=== PATIENT | female | born 1950 | race Caucasian/White ===

== ENCOUNTER → 2021-01-24 | Outpatient (CLI) | payer MEDICARE, BC ==
[~2021-01-24] MED LIST: ASPI325 PO; ASPI81CH PO; CALCIT950 PO; CENTRUM SILVER1 EAC3; CHOL10002 PO; CIPR500 PO; CYAN1000 PO; DICL25ER PO; DICL75ER PO; DOCU100 PO; ERGO400 PO; FISH1000 PO; FOLI1 PO; FOLI400 PO; GLUCOSAMINE-CH1 EA16; GLUCOSAMINE-CH1 EAC4 PO; IBUP800 PO; MAGGLU250 PO; MAGNESIUM400 MG PO; METF500 PO; MULVITMINF PO; Mag-G500 MG PO; OMEP20ER PO; OXYACE5T PO; PRED1SU OD; Tylophen500 MG PO; VITAMIN B-122000 MCG PO
[2021-01-24 14:19] LABS: Creatinine, Urine Random 74.5 mg/dL (27.00-270.00); Microalb/Creat Ratio UR, Rand 17.718 mg/g (0.000-30.000); Microalbumin, Random Urine 13.2 mg/L (0.000-20.000)
== END ==
LOC: LAB SHORT 08:55 → LAB EV 08:55
PROVIDERS: Nurse Practitioner Family
DX: E11.9 Type 2 diabetes mellitus without complications (principal)
CPT/HCPCS: 82043; 82570

== ENCOUNTER → 2021-07-17 | Outpatient (CLI) | payer MEDICARE, BC | END | disposition home or self-care (01) | LOC: LAB SHORT 08:35 → LAB 08:35 | DX: L08.9 Local infection of the skin and subcutaneous tissue, unspecified (principal) | CPT/HCPCS: 87070; 87075; 87077; 87147; 87186; 87205 ==

== ENCOUNTER 2021-07-18 09:02 | Emergency (ER) | payer MEDICARE, BC ==
[~2021-07-18] VITALS: Ht 165.1 cm; Wt 90.0 kg
[2021-07-18 10:20] LABS: BASOPHILS ABSOLUTE AUTO 0.04 K/mm3 (0.00-0.23); BASOPHILS PERCENT AUTO 0 % (0-2); EOSINOPHILS ABSOLUTE AUTO 0.11 K/mm3 (0.00-0.68); EOSINOPHILS PERCENT AUTO 1 % (0-6); Hematocrit 34.1 % (33.0-51.0); Hemoglobin 11.1 g/dL (11.5-16.0); IMMATURE GRAN ABSOLUTE AUTO 0.03 K/mm3 (0.00-0.10); IMMATURE GRAN PERCENT AUTO 0 % (0-1); LYMPHOCYTES ABSOLUTE AUTO 1.95 K/mm3 (0.84-5.20); LYMPHOCYTES PERCENT AUTO 19 % (21-46); MONOCYTES ABSOLUTE AUTO 0.95 K/mm3 (0.16-1.47); MONOCYTES PERCENT AUTO 10 % (4-13); Mean Corpuscular HGB Conc 32.6 g/dL (31.5-36.5); Mean Corpuscular Volume 98 fL (80-100); Mean Platelet Volume 10.3 fL (9.1-12.4); NEUTROPHILS ABSOLUTE AUTO 6.95 K/mm3 (1.96-9.15); NEUTROPHILS PERCENT AUTO 69 % (41-73); Platelet Count 276 K/mm3 (150-400); RDW Coefficient Variation 13.2 % (11.7-14.2); RDW Standard Deviation 47.6 fL (35.1-46.3); Red Blood Cell Count 3.47 M/mm3 (3.80-5.20); White Blood Cell Count 10.03 K/mm3 (4.00-11.30)
[2021-07-18 10:43] LABS: Alanine Aminotransfer (ALT/SGP 21 U/L (12-78); Albumin, Blood 3.3 g/dL (3.4-5.0); Albumin/Globulin Ratio 0.8 (0.8-1.8); Alk Phos 79 U/L (50-136); Anion Gap 4 mmol/L (6-16); Aspartate Aminotrans (AST/SGOT 16 U/L (12-37); Bilirubin, Total 0.3 mg/dL (0.1-1.0); Blood Urea Nitrogen 25 mg/dL (8-24); Bun/Creatinine Ratio 28.8 (12.0-20.0); CO2, Blood 27 mmol/L (21-32); Calcium, Blood 9.7 mg/dL (8.5-10.1); Chloride, Blood 108 mmol/L (98-108); Creatinine, Blood 0.87 mg/dL (0.40-1.00); Globulin, Blood 3.9 g/dL (2.2-4.0); Glomerular Filtration Rate >60 (60-); Glucose, Blood 131 mg/dL (70-99); Potassium, Blood 4.3 mmol/L (3.5-5.5); Sodium, Blood 139 mmol/L (136-145); Total Protein, Blood 7.2 g/dL (6.4-8.2)
== END 2021-07-18 11:34 | disposition home or self-care (01) ==
LOC: ER 09:02
PROVIDERS: Emergency Medicine
DX: E11.69 Type 2 diabetes mellitus with other specified complication (principal); M86.641 Other chronic osteomyelitis, right hand; L03.011 Cellulitis of right finger; Z88.8 Allergy status to other drugs, medicaments and biological substances; Z79.899 Other long term (current) drug therapy; Z79.84 Long term (current) use of oral hypoglycemic drugs; Z79.82 Long term (current) use of aspirin
CPT/HCPCS: 26010; 36415; 73120; 80053; 83605; 85025; 85651; 86141; 99284-25

== ENCOUNTER → 2022-11-12 | Outpatient (CLI) | payer MEDICARE, BC ==
[2022-11-14 10:18] LABS: Stool Occult Blood Guaiac 1 Neg (Neg)
== END | disposition home or self-care (01) ==
LOC: LAB 15:00 → LAB SHORT 15:00
PROVIDERS: Family Medicine
DX: K92.1 Melena (principal)
CPT/HCPCS: 82270

== ENCOUNTER → 2023-01-31 | Outpatient (CLI) | payer MEDICARE, BC ==
[2023-01-31 12:39] LABS: Creatinine, Urine Random 52.6 mg/dL (27.00-270.00)
[2023-01-31 12:40] LABS: Microalb/Creat Ratio UR, Rand 22.053 mg/g (0.000-30.000); Microalbumin, Random Urine 11.6 mg/L (0.000-20.000)
== END | disposition home or self-care (01) ==
LOC: LAB 08:00 → LAB SHORT 08:00
PROVIDERS: Family Medicine
DX: E11.9 Type 2 diabetes mellitus without complications (principal)
CPT/HCPCS: 82043; 82570

== ENCOUNTER → 2023-06-22 | Outpatient (CLI) | payer MEDICARE, BC | END | disposition home or self-care (01) | LOC: LAB SHORT 09:00 → LAB 09:00 | DX: R19.7 Diarrhea, unspecified (principal) | CPT/HCPCS: 82653 ==

== ENCOUNTER 2023-10-19 10:02 | Day surgery (SDC) | payer MEDICARE, BC ==
[~2023-10-19 10:02] MED LIST changes: +FERSU300; +FOLIC ACID0.4 MG
[2023-10-19] MEDS ORDERED: FAMO10 (10:30)
[2023-10-19] MEDS ORDERED: ACET500 (10:32)
[2023-10-19] MEDS ORDERED: CINNAMON-CHROM1 EACH (10:32)
[2023-10-19] MEDS ORDERED: MAGNESIUM OXID500 MG (10:32)
[2023-10-19 12:08] VITALS: BP 130/76
--- NOTE | 2023-10-19 12:09 | NUR ---
10/19/23 1209 Pili Traore IV, DC'Kenny AT 1155/CATHETER WNL
== END 2023-10-19 12:05 | disposition home or self-care (01) ==
LOC: ORSCSDS 10:02
PROVIDERS: Specialist
PROC: 0DBH8ZX Excision of Cecum, Via Natural or Artificial Opening Endoscopic, Diagnostic (ICD-10-PCS; principal; 2023-10-19 11:15)
DX: K62.5 Hemorrhage of anus and rectum (principal); R19.7 Diarrhea, unspecified; D12.0 Benign neoplasm of cecum; K64.8 Other hemorrhoids; K64.4 Residual hemorrhoidal skin tags; K57.30 Diverticulosis of large intestine without perforation or abscess without bleeding
CPT/HCPCS: 82947; 88305; J2704; J7120

== ENCOUNTER 2024-04-29 09:55 | Day surgery (SDC) | payer MEDICARE, BC ==
[~2024-04-29] VITALS: Ht 165.1 cm; Wt 88.7 kg
[~2024-04-29 09:55] MED LIST changes: +ACET500; +CINNAMON-CHROM1 EACH; +FAMO10; +Lactated Ringer's 1,000 ML IV ONE; +MAGNESIUM OXID500 MG; +propofoL 50 ML IV ONE
[2024-04-29] MEDS ORDERED: SIME80CH (10:24)
[2024-04-29] MEDS ORDERED: METAMUCIL POWD798 GM (10:24)
[2024-04-29] MEDS ORDERED: ZENPEP DR 40,01 EACH (10:24)
[2024-04-29] MEDS ORDERED: SITA100T2 (10:24)
[2024-04-29] MEDS ORDERED: Calcium Carbon500 MG (10:25)
[2024-04-29] MEDS ORDERED: Lactated Ringer's 1,000 ML IV ONE (10:48)
[2024-04-29 11:55] VITALS: BP 125/59
== END 2024-04-29 12:04 | disposition home or self-care (01) ==
LOC: ORSCSDS 09:55
PROVIDERS: Internal Medicine Gastroenterology
PROC: 0DJ08ZZ Inspection of Upper Intestinal Tract, Via Natural or Artificial Opening Endoscopic (ICD-10-PCS; principal; 2024-04-29 12:30)
DX: R10.13 Epigastric pain (principal); K92.1 Melena; K64.4 Residual hemorrhoidal skin tags; K86.89 Other specified diseases of pancreas; E11.9 Type 2 diabetes mellitus without complications; E78.5 Hyperlipidemia, unspecified; Z98.84 Bariatric surgery status; F41.9 Anxiety disorder, unspecified; F32.A Depression, unspecified; K57.30 Diverticulosis of large intestine without perforation or abscess without bleeding; Z79.82 Long term (current) use of aspirin; Z79.899 Other long term (current) drug therapy
CPT/HCPCS: 82947; J2704; J7120

== ENCOUNTER → 2024-09-29 | Outpatient (CLI) | payer MEDICARE, BC ==
[~2024-09-29] MED LIST changes: +Calcium Carbon500 MG; -Lactated Ringer's 1,000 ML IV ONE; +METAMUCIL POWD798 GM; +SIME80CH; +SITA100T2; +ZENPEP DR 40,01 EACH; -propofoL 50 ML IV ONE
[2024-09-29 17:28] LABS: Creatinine, Urine Random 60.8 mg/dL (27.00-270.00); Microalb/Creat Ratio UR, Rand 18.257 mg/g (0.000-30.000); Microalbumin, Random Urine 11.1 mg/L (0.000-20.000)
== END | disposition home or self-care (01) ==
LOC: LAB 09:40 → LAB SHORT 09:40
PROVIDERS: Family Medicine
DX: E11.42 Type 2 diabetes mellitus with diabetic polyneuropathy (principal); E11.69 Type 2 diabetes mellitus with other specified complication
CPT/HCPCS: 82043; 82570

== ENCOUNTER → 2025-07-20 | Outpatient (CLI) | payer MEDICARE, BC ==
[2025-07-21 19:30] LABS: Creatinine, Urine Random 30.6 mg/dL (27.00-270.00); Microalb/Creat Ratio UR, Rand 64.052 mg/g (0.000-30.000); Microalbumin, Random Urine 19.6 mg/L (0.000-20.000)
== END ==
LOC: LAB 16:00 → LAB SHORT 16:00
PROVIDERS: Family Medicine
DX: E11.69 Type 2 diabetes mellitus with other specified complication (principal); E11.42 Type 2 diabetes mellitus with diabetic polyneuropathy
CPT/HCPCS: 82043; 82570